=== PATIENT | male | born 1950 | race Caucasian/White ===

== ENCOUNTER 2022-08-04 08:52 | Day surgery (SDC) | payer MEDICARE ==
[~2022-08-04] VITALS: Ht 171.4 cm; Wt 91.3 kg
[~2022-08-04 08:52] MED LIST: BIMA01SOL OU; CEFUROXIME 1MG/0.1ML INTRACAMERAL INJ As Ordered ONE; CYCLOPENTOLATE 1% OPHTH SOLN 2ML BTL OS SCH; DORZ10DR10 OU; FLOM0.4C39 PO; LIDOCAINE 1% SDV 5ML VIAL As Ordered ONE; LOSA50TA28 PO; LOVA40TA PO; OFLOXACIN 0.3 % (OCUFLOX) OPTH SOL 5ML OS SCH; PHENYLEPHRINE 2.5% OPHTH SOL 2ML OS SCH; PROPARACAINE 0.5% OPHTH SOL 15ML OS ONE; TROPICAMIDE 1% OPHTH SOLN 15ML OS SCH
[2022-08-04] MEDS ORDERED: TRYPAN BLUE 0.06 % 2.25 ML OPHTH SYR (VISIONBLUE) As Ordered ONE (10:23)
[2022-08-04] MEDS ORDERED: DUOVISC (0.50ML VISCOAT/0.85ML PROVISC) OPHTH KIT As Ordered ONE ×2 (10:23→11:12)
[2022-08-04] MEDS ORDERED: MIDAZOLAM INJ 2MG/2ML VIAL As Ordered ONE (11:04)
[2022-08-04] MEDS ORDERED: fentaNYL 100 MCG/2 ML INJECTION As Ordered ONE (11:04)
[2022-08-04] MEDS ORDERED: TOBRADEX OPHTH OINT 3.5 GM As Ordered ONE (11:31)
[2022-08-04 11:41] VITALS: BP 157/86
== END 2022-08-04 12:11 | disposition home or self-care (01) ==
LOC: M SDC 08:52
PROVIDERS: ATTEND Ophthalmology
DX: H25.12 Age-related nuclear cataract, left eye (principal); H40.1120 Primary open-angle glaucoma, left eye, stage unspecified; H21.81 Floppy iris syndrome; I10 Essential (primary) hypertension; E78.5 Hyperlipidemia, unspecified; Z79.899 Other long term (current) drug therapy
CPT/HCPCS: 65820; 66982; C1889; J0697; J2250; J3010; V2632

== ENCOUNTER 2022-09-15 08:59 | Day surgery (SDC) | payer MEDICARE ==
[~2022-09-15] VITALS: Ht 170.2 cm; Wt 91.0 kg
[~2022-09-15 08:59] MED LIST changes: -CYCLOPENTOLATE 1% OPHTH SOLN 2ML BTL OS SCH; +MIDAZOLAM INJ 2MG/2ML VIAL As Ordered ONE; -OFLOXACIN 0.3 % (OCUFLOX) OPTH SOL 5ML OS SCH; -PHENYLEPHRINE 2.5% OPHTH SOL 2ML OS SCH; +PROPARACAINE 0.5% OPHTH SOL 15ML OD ONE; -PROPARACAINE 0.5% OPHTH SOL 15ML OS ONE; -TROPICAMIDE 1% OPHTH SOLN 15ML OS SCH; +fentaNYL 100 MCG/2 ML INJECTION As Ordered ONE
[2022-09-15] MEDS: PHENYLEPHRINE 2.5% OPHTH SOL 2ML OD SCH ×2 (10:12→10:14)
[2022-09-15] MEDS: TROPICAMIDE 1% OPHTH SOLN 15ML OD SCH ×2 (10:12→10:14)
[2022-09-15] MEDS: CYCLOPENTOLATE 1% OPHTH SOLN 2ML BTL OD SCH ×2 (10:12→10:14)
[2022-09-15] MEDS: OFLOXACIN 0.3 % (OCUFLOX) OPTH SOL 5ML OD SCH ×2 (10:13→10:14)
[2022-09-15] MEDS ORDERED: POVIDONE-IODINE 5% OPHTH PREP SOL 30ML As Ordered ONE (11:03)
[2022-09-15 11:50] VITALS: BP 161/92; TEMP 97; O2SAT 96
== END 2022-09-15 11:59 | disposition home or self-care (01) ==
LOC: M SDC 08:59
PROVIDERS: ATTEND Ophthalmology
DX: H25.11 Age-related nuclear cataract, right eye (principal); H21.81 Floppy iris syndrome; I10 Essential (primary) hypertension; E78.5 Hyperlipidemia, unspecified; Z79.899 Other long term (current) drug therapy
CPT/HCPCS: 66984; J0697; J2250; J3010; V2632